=== PATIENT | male | born 1955 | race Caucasian/White ===

== ENCOUNTER 2020-08-13 16:50 | Emergency (ER) | payer BC ==
[~2020-08-13] VITALS: Ht 190.5 cm; Wt 80.8 kg
[2020-08-13] MEDS ORDERED: aspirin 81mg tab.chew PO ONE (17:20)
[2020-08-13 17:52] LABS: BASOPHILS # (AUTO) 0.1 X10'3 (0-0.2); BASOPHILS % (AUTO) 0.8 % (0-1); EOSINOPHILS # (AUTO) 0.7 X10'3 (0-0.9); EOSINOPHILS % (AUTO) 5.9 % (0-6); HEMATOCRIT 43.5 % (42.0-52.0); HEMOGLOBIN 14.4 g/dl (14.0-17.9); LYMPHOCYTES # (AUTO) 1.1 X10'3 (1.1-4.8); LYMPHOCYTES % (AUTO) 8.5 % (21-51); MEAN CORPUSCULAR HEMOGLOBIN 28.7 PG (27.0-31.0); MEAN CORPUSCULAR HGB CONC 33.2 g/dL (33.0-36.5); MEAN CORPUSCULAR VOLUME 86.5 FL (78-98); MEAN PLATELET VOLUME 7.2 FL (7.4-10.4); MONOCYTES # (AUTO) 1.3 X10'3 (0-0.9); MONOCYTES % (AUTO) 10.6 % (2-12); NEUTROPHILS # (AUTO) 9.2 X10'3 (1.8-7.7); NEUTROPHILS % (AUTO) 74.2 % (42-75); PLATELET COUNT 425 X10'3 (140-440); RED BLOOD COUNT 5.03 X10'6 (4.70-6.10); RED CELL DISTRIBUTION WIDTH 15.3 % (11.5-14.5); WHITE BLOOD COUNT 12.3 X10'3 (4.5-11.0)
--- NOTE | 2020-08-13 17:58 | NUR ---
Pt continues to deny any chest pain.
[2020-08-13 17:59] LABS: PARTIAL THROMBOPLASTIN TIME 28 SECONDS (22-32)
[2020-08-13 18:01] LABS: ALANINE AMINOTRANSFERASE 69 U/L (12-78); ALBUMIN 3.1 G/DL (3.4-5.0); ALBUMIN/GLOBULIN RATIO 0.7 (1.1-1.5); ALKALINE PHOSPHATASE 183 IU/L (46-116); ANION GAP 10 (8-16); ASPARTATE AMINO TRANSFERASE 18 U/L (10-37); BILIRUBIN,TOTAL 0.5 MG/DL (0.1-1.0); BLOOD UREA NITROGEN 25 MG/DL (7-18); BUN/CREATININE RATIO 15.1 (5.4-32.0); CALCIUM 9.5 MG/DL (8.5-10.1); CHLORIDE 100 MMOL/L (99-107); CREATININE 1.66 MG/DL (0.60-1.10); GLUCOSE 110 MG/DL (70-104); POTASSIUM 4.1 MMOL/L (3.5-5.1); SODIUM 138 MMOL/L (135-145); TOTAL PROTEIN 7.6 G/DL (6.4-8.2); eGFR 42 ML/MIN
--- NOTE | 2020-08-13 18:04 | NUR ---
windows [employer] technician at bedside.
[2020-08-13 18:08] LABS: MAGNESIUM 2.1 MG/DL (1.5-2.4)
[2020-08-13 18:38] VITALS: BP 126/81
== END 2020-08-13 20:51 | disposition home or self-care (01) ==
LOC: ER 16:51
DX: R00.0 Tachycardia, unspecified (principal); Z98.890 Other specified postprocedural states
CPT/HCPCS: 36415; 71045; 80053; 83735; 83880; 84484; 85025; 85610; 85730; 93005; 93306; 99285

== ENCOUNTER 2020-08-21 13:21 | Inpatient (IN) | payer BC ==
[~2020-08-21] VITALS: Ht 190.5 cm; Wt 84.1 kg
[2020-08-21 14:49] LABS: BASOPHILS # (AUTO) 0.2 X10'3 (0-0.2); EOSINOPHILS # (AUTO) 0.7 X10'3 (0-0.9); HEMOGLOBIN 14.5 g/dl (14.0-17.9); LYMPHOCYTES # (AUTO) 1.4 X10'3 (1.1-4.8); MEAN CORPUSCULAR HEMOGLOBIN 28.3 PG (27.0-31.0); MONOCYTES # (AUTO) 0.7 X10'3 (0-0.9); NEUTROPHILS # (AUTO) 6.6 X10'3 (1.8-7.7); RED BLOOD COUNT 5.12 X10'6 (4.70-6.10); WHITE BLOOD COUNT 9.5 X10'3 (4.5-11.0)
[2020-08-21 14:51] LABS: EOSINOPHILS % (AUTO) 7.3 % (0-6); HEMATOCRIT 44.1 % (42.0-52.0); LYMPHOCYTES % (AUTO) 14.3 % (21-51); MEAN CORPUSCULAR HGB CONC 32.8 g/dL (33.0-36.5); MEAN CORPUSCULAR VOLUME 86.1 FL (78-98); MEAN PLATELET VOLUME 6.7 FL (7.4-10.4); MONOCYTES % (AUTO) 7.1 % (2-12); NEUTROPHILS % (AUTO) 69.3 % (42-75); PLATELET COUNT 715 X10'3 (140-440); RED CELL DISTRIBUTION WIDTH 15.1 % (11.5-14.5)
[2020-08-21 15:06] LABS: ALANINE AMINOTRANSFERASE 28 U/L (12-78); ALBUMIN 3.2 G/DL (3.4-5.0); ALBUMIN/GLOBULIN RATIO 0.7 (1.1-1.5); ALKALINE PHOSPHATASE 93 IU/L (46-116); ANION GAP 8 (8-16); ASPARTATE AMINO TRANSFERASE 17 U/L (10-37); BILIRUBIN,TOTAL 0.2 MG/DL (0.1-1.0); BLOOD UREA NITROGEN 22 MG/DL (7-18); BUN/CREATININE RATIO 12.9 (5.4-32.0); CALCIUM 9.3 MG/DL (8.5-10.1); CHLORIDE 108 MMOL/L (99-107); GLUCOSE 99 MG/DL (70-104); POTASSIUM 5.1 MMOL/L (3.5-5.1); SODIUM 144 MMOL/L (135-145); TOTAL PROTEIN 7.5 G/DL (6.4-8.2); eGFR 41 ML/MIN
[2020-08-21] MEDS ORDERED: mag hydrox/Alum hydrox/simeth 30ml oral suspension PO PRN (17:55)
[2020-08-21] MEDS ORDERED: HYDROcodone/acetaminophen 5mg/325mg tablet PO PRN (17:55)
[2020-08-21] MEDS ORDERED: ondansetron/PF 4mg/2ml inj IV PRN (17:55)
[2020-08-21] MEDS ORDERED: HYDROcodone/acetaminophen 10/325mg tab PO PRN (17:55)
[2020-08-21] MEDS ORDERED: acetaminophen 325mg tablet PO PRN ×2 (17:55)
[2020-08-21] MEDS ORDERED: morphine 2 MG/ML inj. syringe IV PRN ×2 (17:55)
[2020-08-21] MEDS ORDERED: magnesium hydroxide 30ml (MOM) UD suspension PO PRN (17:55)
[2020-08-21] MEDS ORDERED: diltiazem CD 120mg capsule (once-daily) PO SCH (18:00)
[2020-08-21] MEDS ORDERED: IBUP-1984 PO (18:18)
[2020-08-21] MEDS ORDERED: ASPI81TA52 PO (18:18)
[2020-08-21] MEDS ORDERED: METO-467 PO (18:18)
--- NOTE | 2020-08-21 18:31 | NUR ---
Dr. Delgado pg'ed, notified that pt takes Metoprolol at home. Dr. Delgado wants to change to Diltiazem, order as is in MAR. RN Cindi aware, report given to her.
--- NOTE | 2020-08-21 19:48 | NUR ---
Patient going to #313A and has questions for Dr. Danny DODD admitting MD has not spoken with patient yet, I paged him and advised what room he was going to.
[2020-08-21] MEDS: apixaban 5mg tablet PO SCH (20:46)
[2020-08-21 21:34] VITALS: BP 112/63
[2020-08-21 22:00] VITALS: BP 126/81
[2020-08-22 02:00] VITALS: BP 120/80
[2020-08-22 03:03] LABS: BASOPHILS # (AUTO) 0.1 X10'3 (0-0.2); HEMOGLOBIN 13.9 g/dl (14.0-17.9); RED CELL DISTRIBUTION WIDTH 15.2 % (11.5-14.5)
[2020-08-22 03:05] LABS: BASOPHILS % (AUTO) 0.9 % (0-1); EOSINOPHILS % (AUTO) 8.8 % (0-6); HEMATOCRIT 42.5 % (42.0-52.0); LYMPHOCYTES # (AUTO) 1.6 X10'3 (1.1-4.8); LYMPHOCYTES % (AUTO) 13.8 % (21-51); MEAN CORPUSCULAR HEMOGLOBIN 28.3 PG (27.0-31.0); MEAN CORPUSCULAR HGB CONC 32.8 g/dL (33.0-36.5); MEAN CORPUSCULAR VOLUME 86.3 FL (78-98); MEAN PLATELET VOLUME 6.8 FL (7.4-10.4); MONOCYTES # (AUTO) 0.9 X10'3 (0-0.9); MONOCYTES % (AUTO) 7.7 % (2-12); NEUTROPHILS # (AUTO) 7.8 X10'3 (1.8-7.7); NEUTROPHILS % (AUTO) 68.8 % (42-75); PLATELET COUNT 630 X10'3 (140-440); RED BLOOD COUNT 4.92 X10'6 (4.70-6.10); WHITE BLOOD COUNT 11.3 X10'3 (4.5-11.0)
[2020-08-22 03:21] LABS: ALBUMIN 2.8 G/DL (3.4-5.0); ANION GAP 7 (8-16); BLOOD UREA NITROGEN 22 MG/DL (7-18); BUN/CREATININE RATIO 15.3 (5.4-32.0); CHLORIDE 111 MMOL/L (99-107); CREATININE 1.44 MG/DL (0.60-1.10); GLUCOSE 102 MG/DL (70-104); POTASSIUM 3.9 MMOL/L (3.5-5.1); SODIUM 145 MMOL/L (135-145); TOTAL CARBON DIOXIDE 26.7 MMOL/L (24-32); eGFR 49 ML/MIN
[2020-08-22 06:00] VITALS: BP 110/80
--- NOTE | 2020-08-22 06:15 | NUR ---
Patient in room MED 311. I have received report from DAVID Bedoya and had the opportunity to ask questions and assume patient care.
--- NOTE | 2020-08-22 06:39 | NUR ---
Problems reprioritized. Patient report given, questions answered & plan of care reviewed with MATY. Addendum: 08/22/20 at 0639 by Adrien Kerr RN Amended: Links added.
[2020-08-22] MEDS: metoprolol tartrate 50mg tablet PO SCH ×2 (08:00→14:21)
[2020-08-22] MEDS ORDERED: ibuprofen tablet 400 MG TABLET PO SCH (08:00)
[2020-08-22] MEDS ORDERED: aspirin 81mg tablet.DR PO SCH (08:00)
[2020-08-22] MEDS ORDERED: digoxin 250mcg/ml 2ml ampule IV ONE (08:13)
[2020-08-22] MEDS: apixaban 5mg tablet PO SCH ×2 (09:05→17:39)
[2020-08-22 10:00] VITALS: BP 119/89
--- NOTE | 2020-08-22 12:01 | NUR ---
PAGER ID: [phone] MESSAGE: Re: Latif Kassidy Room 311. Pt would like to leave "I can monitor this at home" he states. Did you get a hold of cardiology consult? HR still between 110's and 140's when standing up. Thanks, Cherelle [phone]
[2020-08-22 14:00] VITALS: BP 127/81
[2020-08-22] MEDS ORDERED: diltiazem 30mg tablet PO SCH (14:00)
[2020-08-22 14:21] VITALS: BP_SYST 119
--- NOTE | 2020-08-22 14:22 | NUR ---
Per MD Delgado this AM - held metoprolol 50 mg. Per SHANNON Rod - give metoprolol. Wait on 1400 cardizem.
--- NOTE | 2020-08-22 16:45 | NUR ---
yenni 1400 - held per SHANNON Rod
--- NOTE | 2020-08-22 16:48 | NUR ---
PAGER ID: [phone] MESSAGE: Kassidy Latif Room 311. SHANNON Rod made changes to medication. D/C?? Thanks, Cherelle [phone]
--- NOTE | 2020-08-22 17:16 | NUR ---
PAGER ID: [phone] MESSAGE[facility], Dr Harding - they want patient to go home with his night time dose of Eliquis 5mg. If ok, then, can you add to d/c meds? Thanks, Cherelle [phone]
--- NOTE | 2020-08-22 17:22 | NUR ---
Per MD Danny Oro to give 2000 dose of eliquis before patient leaves today.
--- NOTE | 2020-08-22 17:40 | NUR ---
Pt stable for D/C per MD orders. PIV removed - pt tolerated well. All d/c ppwk was reviewed with pt - pt had the opportunity to ask questions and get answers. All personal belongings sent with patient. No new RX. Walked patient out to who was waiting in the car. Pt did not have any additional questions. Per MD Delgado, I was able to give pts 2000 eliquis before patient walked out the door.
[2020-08-22] MEDS ORDERED: sotalol 80mg tablet PO SCH (20:00)
== END 2020-08-22 17:40 | disposition home or self-care (01) | DRG 309 ==
LOC: ER 13:22 → UNDOADMIN 17:54 → ED HOLD 17:54 → MED 3N 20:24 → ED HOLD 20:24
PROVIDERS: ADMIT Internal Medicine; ATTEND Internal Medicine
DX: I48.0 Paroxysmal atrial fibrillation (principal); N17.9 Acute kidney failure, unspecified; N18.30 Chronic kidney disease, stage 3 unspecified; Z79.899 Other long term (current) drug therapy; Z79.82 Long term (current) use of aspirin
CPT/HCPCS: 36415; 71045; 80048; 80053; 83880; 84443; 84484; 85025; 87081; 93005; 99285; G0378; J1160

== ENCOUNTER 2020-10-03 07:31 | Day surgery (SDC) | payer BC ==
[~2020-10-03] VITALS: Ht 190.5 cm; Wt 86.7 kg
[2020-10-03] VITALS (13 sets, daily range): BP systolic 92–136; BP diastolic 54–95
[~2020-10-03 07:31] MED LIST: IBUP-1984 PO; METO-467 PO
[2020-10-03] MEDS ORDERED: TADA5TAB13 PO (08:08)
[2020-10-03] MEDS ORDERED: AMIO200T61 PO (08:08)
[2020-10-03] MEDS ORDERED: METO-384 PO (08:08)
[2020-10-03] MEDS ORDERED: fentaNYL/PF 50MCG/1 ML 2ML syringe IV ONE (08:10)
[2020-10-03] MEDS ORDERED: MIDAZolam 1mg/ml 10ml vial IV ONE (08:10)
[2020-10-03] MEDS ORDERED: normal saline 1000ml 1,000 ML IV SCH (08:10)
[2020-10-03] MEDS ORDERED: APIX5TAB3 PO (08:16)
[2020-10-03] MEDS ORDERED: OMEG-79 PO (08:16)
[2020-10-03] MEDS ORDERED: TESTOSTERONE (08:16)
[2020-10-03] MEDS ORDERED: VITAMIN E (08:16)
[2020-10-03] MEDS ORDERED: CHOL200074 PO (08:16)
[2020-10-03] MEDS ORDERED: CETI-194 PO (08:16)
[2020-10-03] MEDS ORDERED: MULT-1085 PO (08:16)
[2020-10-03] MEDS ORDERED: ASPI-1265 PO (08:16)
[2020-10-03 08:44] LABS: BASOPHILS # (AUTO) 0.1 X10'3 (0-0.2); HEMATOCRIT 46.9 % (42.0-52.0); LYMPHOCYTES # (AUTO) 1.2 X10'3 (1.1-4.8); MONOCYTES # (AUTO) 0.6 X10'3 (0-0.9)
[2020-10-03 08:46] LABS: BASOPHILS % (AUTO) 2.1 % (0-1); EOSINOPHILS % (AUTO) 16.6 % (0-6); HEMOGLOBIN 15.4 g/dl (14.0-17.9); MEAN CORPUSCULAR HEMOGLOBIN 27.9 PG (27.0-31.0); MEAN CORPUSCULAR HGB CONC 32.7 g/dL (33.0-36.5); MEAN CORPUSCULAR VOLUME 85.2 FL (78-98); MEAN PLATELET VOLUME 7.4 FL (7.4-10.4); MONOCYTES % (AUTO) 9.9 % (2-12); NEUTROPHILS # (AUTO) 3.1 X10'3 (1.8-7.7); NEUTROPHILS % (AUTO) 51.4 % (42-75); PLATELET COUNT 277 X10'3 (140-440); RED BLOOD COUNT 5.51 X10'6 (4.70-6.10); RED CELL DISTRIBUTION WIDTH 16.5 % (11.5-14.5)
[2020-10-03 08:53] LABS: ALBUMIN 3.9 G/DL (3.4-5.0); ANION GAP 7 (8-16); BLOOD UREA NITROGEN 22 MG/DL (7-18); BUN/CREATININE RATIO 12.1 (5.4-32.0); CALCIUM 9.2 MG/DL (8.5-10.1); CHLORIDE 106 MMOL/L (99-107); CREATININE 1.82 MG/DL (0.60-1.10); GLUCOSE 83 MG/DL (70-104); MAGNESIUM 2.2 MG/DL (1.5-2.4); POTASSIUM 4.3 MMOL/L (3.5-5.1); SODIUM 143 MMOL/L (135-145); TOTAL CARBON DIOXIDE 30.5 MMOL/L (24-32); eGFR 38 ML/MIN
== END 2020-10-03 11:35 | disposition home or self-care (01) ==
LOC: SSTAY O 07:31
PROVIDERS: ATTEND Internal Medicine Cardiovascular Disease
DX: I48.3 Typical atrial flutter (principal); I48.0 Paroxysmal atrial fibrillation; I08.1 Rheumatic disorders of both mitral and tricuspid valves; E78.5 Hyperlipidemia, unspecified; Z95.2 Presence of prosthetic heart valve; Z79.01 Long term (current) use of anticoagulants; Z79.899 Other long term (current) drug therapy
CPT/HCPCS: 36415; 80048; 83735; 85025; 85610; 92960; 93005; 94760; 94799; J2250; J3010; J7030